=== PATIENT | female | born 1960 | race Caucasian/White ===

== ENCOUNTER 2020-09-23 04:28 | Emergency (ER) | payer OTHER ==
[~2020-09-23] VITALS: Ht 165.1 cm; Wt 90.7 kg
[~2020-09-23 04:28] MED LIST: ACET500 PO; ALBU90OI PO; ASCO500 PO; Ambien10 MG PO; BENZ100A PO; CIPR500 PO; CYCL10 PO; DELTASONE20 MG PO; DESV50 PO; FISH1000 PO; Ferosul325 MG PO; GABA300 PO; HYDACE10B PO; HYDACE5 PO; LAMO100 PO; LEVO750 PO; MULVITMIND PO; NAPR500 PO; PROM25 PO; Pristiq100 MG PO; QUET200 PO; QUET300 PO; RXHYDACE PO; TOBR.3OPSO OP; ZOLP10 PO; [UNRECOGNIZED DRUG - REMARK]
[2020-09-23] MEDS ORDERED: ARIPIPRAZOLE15 MG PO (04:48)
[2020-09-23] MEDS ORDERED: Norco 10-325 T1 EACH PO (05:13)
== END 2020-09-23 05:30 | disposition home or self-care (01) ==
LOC: ER 04:28
DX: S82.841A Displaced bimalleolar fracture of right lower leg, initial encounter for closed fracture (principal); Z88.2 Allergy status to sulfonamides; Z79.52 Long term (current) use of systemic steroids; Z79.899 Other long term (current) drug therapy; W06.XXXA Fall from bed, initial encounter
CPT/HCPCS: 29515; 73610; 99284-25; A9270

== ENCOUNTER 2021-05-07 13:10 | Emergency (ER) | payer OTHER ==
[~2021-05-07] VITALS: Ht 167.6 cm; Wt 90.7 kg
[~2021-05-07 13:10] MED LIST changes: +ARIPIPRAZOLE15 MG PO; +Norco 10-325 T1 EACH PO
== END 2021-05-07 16:00 | disposition home or self-care (01) ==
LOC: ER 13:10
DX: U07.1 COVID-19 (principal); Z88.2 Allergy status to sulfonamides; Z88.8 Allergy status to other drugs, medicaments and biological substances
CPT/HCPCS: 36415; 71045; 99283-25; J7030; M0243; Q0243

== ENCOUNTER → 2022-03-20 | Outpatient (CLI) | payer OTHER ==
[2022-03-21 08:13] LABS: Campylobacter Sp Not Detected (NOT DETECT); Enteroaggregative E. coli-EAEC Not Detected (NOT DETECT); Enteropathogenic E. coli-EPEC Not Detected (NOT DETECT); Enterotoxigenic E. coli-ETEC Not Detected (NOT DETECT); Plesiomonas Shigelloides Not Detected (NOT DETECT); Salmonella Sp Not Detected (NOT DETECT); Vibrio Cholerae Not Detected (NOT DETECT); Vibrio Sp Not Detected (NOT DETECT); Yersinia Enterocolitica Not Detected (NOT DETECT)
[2022-03-21 08:14] LABS: Adenovirus F 40/41 Not Detected (NOT DETECT); Astrovirus Not Detected (NOT DETECT); Cryptosporidium Not Detected (NOT DETECT); Cyclospora Cayetanensis Not Detected (NOT DETECT); E. Coli O157 Not Detected (NOT DETECT); Entamoeba Histolytica Not Detected (NOT DETECT); Giardia Lamblia Not Detected (NOT DETECT); Norovirus GI/GII Detected (NOT DETECT); Rotavirus A Not Detected (NOT DETECT); Sapovirus Not Detected (NOT DETECT); Shiga Toxin-prod E. coli-STEC Not Detected (NOT DETECT); Shigella/Enteroin E. coli-EIEC Not Detected (NOT DETECT)
== END | disposition home or self-care (01) ==
LOC: LAB SHORT 14:00 → LAB 14:00 → LAB FUT 03-19 16:30
PROVIDERS: Internal Medicine Gastroenterology
DX: R19.7 Diarrhea, unspecified (principal)
CPT/HCPCS: 87507

== ENCOUNTER 2022-03-25 09:09 | Day surgery (SDC) | payer OTHER ==
[~2022-03-25] VITALS: Ht 165.1 cm; Wt 200.8 kg
[2022-03-25] MEDS ORDERED: ASPI81CH (10:13)
[2022-03-25] MEDS ORDERED: C COMPLEX1000 M1 (10:14)
[2022-03-25] MEDS ORDERED: DHEA (10:14)
[2022-03-25] MEDS ORDERED: B-12 COMPL1000 MCG/2 (10:15)
[2022-03-25] MEDS ORDERED: PROG100 (10:15)
[2022-03-25] MEDS ORDERED: METO25ER (10:15)
[2022-03-25] MEDS ORDERED: CLON.5 (10:16)
[2022-03-25] MEDS ORDERED: LEVSOD100 (10:16)
[2022-03-25] MEDS ORDERED: TIMO.25OPS (10:16)
[2022-03-25] MEDS ORDERED: 1/2 NS 250ml250 ML (10:17)
[2022-03-25] MEDS ORDERED: Actos30 MG (10:17)
[2022-03-25] MEDS ORDERED: LATA.005SO (10:17)
[2022-03-25] MEDS ORDERED: Alphagan P5 ML (10:17)
--- NOTE | 2022-03-25 12:04 | NUR ---
03/25/22 1204 Evelin Mariee LATE ENTRY FOR TODAY SPOKE WITH SANDRA AT [facility] OFFICE REGARDING PATIENTS RUN OF SVT DURING HER VISIT TODAY. PATIENTS ARRIVAL TIME TODAY WAS 0915 AND UPON ADMIT HER HR WAS 117 AND CONTINUED TO BE ELEVATED ABOVE 100 BPM THROUGHOUT THE ENTIRE COLONOSCOPY. PT DENIED FEELING ANXIOUS, DEHYDRATED. PT ADMITS TO HAVING THESE EPISODES 2-3 TIMES PER WEEK. PT TOOK HER METOPROLOL AT 0600 THIS MORNING. PRIOR TO DISCHARGE HER HR BECAME NORMAL AT [address] ZAMARRIPA WANTED RN TO CONTACT PT'S PCP TO LET THEM KNOW ABOUT THIS EPISODE. PER SANDRA AT [facility] OFF[facility] THEY WILL CONTACT PT AND SET UP A FOLLOW UP APPOINTMENT WITH HER IN THE NEAR FUTURE.
== END 2022-03-25 11:45 | disposition home or self-care (01) ==
LOC: ORSCSDS 09:09
PROVIDERS: Internal Medicine Gastroenterology
PROC: 0DBM8ZX Excision of Descending Colon, Via Natural or Artificial Opening Endoscopic, Diagnostic (ICD-10-PCS; principal; 2022-03-25 10:30)
PROC: 0DBP8ZX Excision of Rectum, Via Natural or Artificial Opening Endoscopic, Diagnostic (ICD-10-PCS; principal; 2022-03-25 10:30)
PROC: 0DBH8ZX Excision of Cecum, Via Natural or Artificial Opening Endoscopic, Diagnostic (ICD-10-PCS; principal; 2022-03-25 10:30)
PROC: 0DBE8ZX Excision of Large Intestine, Via Natural or Artificial Opening Endoscopic, Diagnostic (ICD-10-PCS; principal; 2022-03-25 10:30)
DX: R19.7 Diarrhea, unspecified (principal); K57.30 Diverticulosis of large intestine without perforation or abscess without bleeding; D12.0 Benign neoplasm of cecum; D12.8 Benign neoplasm of rectum; D12.4 Benign neoplasm of descending colon; Z98.84 Bariatric surgery status; E11.9 Type 2 diabetes mellitus without complications; R00.0 Tachycardia, unspecified; E66.9 Obesity, unspecified; Z68.33 Body mass index [BMI] 33.0-33.9, adult; Z79.899 Other long term (current) drug therapy
CPT/HCPCS: 82947; 88305; J2704; J7120